=== PATIENT | female | born 1985 | race Caucasian/White ===

== ENCOUNTER 2016-11-12 09:07 | Outpatient (CLI) | payer OTHER | END 2016-11-12 09:10 | LOC: LAB 09:07 | PROVIDERS: ATTEND Nurse Practitioner Psychiatric/Mental Health | DX: Z51.81 Encounter for therapeutic drug level monitoring (principal); Z79.899 Other long term (current) drug therapy | CPT/HCPCS: 36415; 82306 ==

== ENCOUNTER 2017-02-11 08:24 | Outpatient (CLI) | payer OTHER | END 2017-02-11 08:34 | LOC: LAB 08:24 | PROVIDERS: ATTEND Nurse Practitioner Psychiatric/Mental Health | DX: Z51.81 Encounter for therapeutic drug level monitoring (principal) | CPT/HCPCS: 36415; 80171 ==

== ENCOUNTER → 2017-06-10 | Outpatient (CLI) | payer OTHER | LOC: LAB 08:33 | PROVIDERS: ATTEND Nurse Practitioner Psychiatric/Mental Health | DX: Z51.81 Encounter for therapeutic drug level monitoring (principal); Z79.899 Other long term (current) drug therapy | CPT/HCPCS: 36415; 80171; 82306 ==

== ENCOUNTER 2017-10-18 08:29 | Outpatient (CLI) | payer OTHER ==
[2017-10-18 09:50] LABS: BASOPHILS % 0.8 (0.0-1.5); EOSINOPHILS % 9.4 % (0.0-6.8); MONOCYTES % 3.8 % (0.0-11.0); NEUTROPHILS # 2.9 # k/uL (1.4-7.7)
[2017-10-18 10:54] LABS: eGFR (African) > 60; eGFR (Non-African) > 60
== END 2017-10-18 08:30 ==
LOC: LAB 08:29
PROVIDERS: ATTEND Psychiatry & Neurology Psychiatry
DX: Z79.899 Other long term (current) drug therapy (principal)
CPT/HCPCS: 36415; 80053; 80061; 80171; 85025

== ENCOUNTER 2018-04-18 08:32 | Outpatient (CLI) | payer OTHER | END 2018-04-18 08:33 | LOC: LAB 08:32 | PROVIDERS: ATTEND Psychiatry & Neurology Psychiatry | DX: Z51.81 Encounter for therapeutic drug level monitoring (principal); Z79.899 Other long term (current) drug therapy | CPT/HCPCS: 36415; 80171 ==